=== PATIENT | female | born 1955 | race African-American/Black ===

== ENCOUNTER 2024-07-21 13:56 | Inpatient (IN) | payer MEDICARE ==
[~2024-07-21 13:56] MED LIST: Iopamidol-370 76% 500 ML MDV (1 ML CHARGE) ONE
[2024-07-21] MEDS ORDERED: Heparin 10,000 UNITS/ 10 ML VIAL ONE (14:37)
[2024-07-21] MEDS ORDERED: Tenecteplase 50 MG ONE (14:39)
[2024-07-21 14:41] LABS: #Basophils 0.04 10x3/uL (0.0-0.2); %Basophils 0.9 % (0.0-1.0); %Eosinophils 3.8 % (0.0-10.0); %Lymphocytes 34.8 % (21.0-51.0); %Monocytes 10.9 % (0.0-10.0); %Neutrophils 49.6 % (42.0-75.0); Hematocrit 35.2 % (36.0-47.0); Hemoglobin 11.3 g/dL (12.0-16.0); Mean Corpuscular HGB CONC 32.1 g/dL (32.0-36.0); Mean Corpuscular Hemoglobin 25.9 pg (27.0-31.0); Mean Corpuscular Volume 80.7 fL (78.0-98.0); Mean Platelet Volume 11.1 fL (7.4-10.4); Platelet Count 158 10x3/uL (130-400); RBC Distribution Width 14.4 % (11.5-14.5); Red Blood Cell (RBC) Count 4.36 mill/uL (4.20-5.40)
[2024-07-21] MEDS ORDERED: fentaNYL PF 100 MCG/2 ML SYRINGE ONE (14:53)
[2024-07-21] MEDS ORDERED: Iopamidol 370 76% 100 ML VIAL ONE (14:54)
[2024-07-21 15:00] LABS: Prothrombin Time 13.3 sec (12.0-14.7)
[2024-07-21 15:01] LABS: PTT 23.6 sec (22.9-36.1)
[2024-07-21] MEDS ORDERED: Rocuronium Bromide 10 MG/ML (10ML VIAL) ONE (15:07)
[2024-07-21] MEDS ORDERED: Lidocaine 1% PF 5 ML VIAL ONE (15:07)
[2024-07-21] MEDS ORDERED: PHENYLEPHRINE-NS 100 MCG/ML 10 ML SYRINGE ONE (15:07)
[2024-07-21] MEDS ORDERED: PROPOFOL 200 MG/20 ML VIAL ONE (15:07)
[2024-07-21 15:08] LABS: ALT (SGPT) 9 U/L (8-55); AST (SGOT) 17 U/L (5-34); Albumin 3.4 g/dL (3.4-4.8); Alkaline Phosphatase 73 U/L (40-110); Anion Gap 13 mmol/L (10-20); BUN (Urea Nitrogen) 29 mg/dL (9.8-20.1); Bilirubin, Total 0.9 mg/dL (0.2-1.2); Calc. Creatinine Clearance 0 mL/min (70-130); Carbon Dioxide 26 mmol/L (23-31); Chloride 101 mmol/L (98-107); Estimated GFR 62; Glucose 78 mg/dL (80-115); Potassium 2.6 mmol/L (3.5-5.1); Protein, Total 6.4 g/dL (5.8-8.1); Sodium 137 mmol/L (136-145)
[2024-07-21] MEDS ORDERED: SUGAMMADEX SODIUM 200 MG/2 ML VIAL ONE (15:12)
[2024-07-21 15:17] LABS: Troponin I Less than 0.010 ng/mL (< 0.028)
[2024-07-21] MEDS ORDERED: niCARdipine 25 MG in Sodium Chloride 0.9% 250 ML 250 ML IVPB PRN (16:10)
[2024-07-21] MEDS ORDERED: Labetalol HCl 100 MG/20 ML VIAL SLOW IVP PRN (16:10)
[2024-07-21] MEDS ORDERED: hydrALAZINE 20 MG/ML VIAL SLOW IVP PRN (16:10)
[2024-07-21 16:17] LABS: Magnesium 2.3 mg/dL (1.6-2.6); Phosphorus 2.1 mg/dL (2.3-4.7)
[2024-07-21] MEDS ORDERED: Acetaminophen 325 MG TAB PO PRN (17:16)
[2024-07-21] MEDS ORDERED: Sodium Chloride 0.9% 1,000 ML IV SCH (17:30)
[2024-07-21] MEDS: [UNRECOGNIZED DRUG - REMARK] FS SCH (19:30)
[2024-07-21 19:41] VITALS: BMI 24.7
[2024-07-21] MEDS: NS 0.9% w/ 20 MEQ KCL 1,000 ML/1,000 ML BAG IV SCH (19:43)
[2024-07-21] MEDS: Potassium Phosphate 30 MMOL in Sodium Chloride 0.9% 250 ML 250 ML IVPB SCH (19:43)
[2024-07-21] MEDS: Atorvastatin Calcium 40 MG TAB PO SCH (22:04)
[2024-07-22 04:52] LABS: #Basophils Less than 0.03 10x3/uL (0.0-0.2); #Eosinphils Less than 0.03 10x3/uL (0.0-0.7); %Basophils 0.1 % (0.0-1.0); %Eosinophils 0.1 % (0.0-10.0); %Lymphocytes 18.5 % (21.0-51.0); %Monocytes 7.3 % (0.0-10.0); %Neutrophils 73.7 % (42.0-75.0); Hemoglobin 10.4 g/dL (12.0-16.0); Mean Corpuscular HGB CONC 32.5 g/dL (32.0-36.0); Mean Corpuscular Hemoglobin 25.5 pg (27.0-31.0); Mean Corpuscular Volume 78.4 fL (78.0-98.0); Platelet Count 171 10x3/uL (130-400); RBC Distribution Width 14.4 % (11.5-14.5); Red Blood Cell (RBC) Count 4.08 mill/uL (4.20-5.40)
[2024-07-22 04:55] LABS: Anion Gap 11 mmol/L (10-20); BUN (Urea Nitrogen) 12 mg/dL (9.8-20.1); Calc. Creatinine Clearance 80 mL/min (70-130); Calcium 7.8 mg/dL (7.8-10.44); Carbon Dioxide 24 mmol/L (23-31); Cardiac Risk 2.9 (Less than 4.5); Chloride 113 mmol/L (98-107); Cholesterol 104 mg/dl (< 200 Desired); Estimated GFR 90; Glucose 101 mg/dL (80-115); HDL Cholesterol 36 mg/dL (>60 Neg Risk); LDL Cholesterol, Calculated 58 mg/dL; Phosphorus 3.6 mg/dL (2.3-4.7); Potassium 2.8 mmol/L (3.5-5.1); Sodium 145 mmol/L (136-145); Triglycerides 48 mg/dL (Less than 150)
[2024-07-22] MEDS ORDERED: Electrolyte Replacement Protocol FS PRN (08:15)
[2024-07-22] MEDS: Potassium Chloride 20 MEQ in Premix 1 BAG IVPB SCH (08:24)
[2024-07-22] MEDS ORDERED: Dextrose 5% in Water 1,000 ML IV PRN (17:45)
[2024-07-22] MEDS ORDERED: Glucagon 1 MG/ML KIT IM PRN (17:45)
[2024-07-22] MEDS: Aspirin 300 MG Suppository PR SCH (17:50)
[2024-07-22] MEDS: Dextrose 50% Abboject 50 ML SYRINGE SLOW IVP PRN (18:08)
[2024-07-22 18:44] LABS: Potassium 5.8 mmol/L (3.5-5.1)
[2024-07-22] MEDS ORDERED: Enoxaparin 40 MG (0.4 mL) SYRINGE SC SCH (21:00)
[2024-07-22] MEDS: Sodium Chloride 0.9% 1,000 ML IV SCH (21:21)
[2024-07-22] MEDS: Heparin 5,000 UNITS/ML VIAL SC SCH (21:21)
[2024-07-23] MEDS: Acetaminophen 650 MG Suppository PR PRN (04:43)
[2024-07-23 06:34] LABS: #Basophils 0.03 10x3/uL (0.0-0.2); %Basophils 0.5 % (0.0-1.0); %Eosinophils 0.8 % (0.0-10.0); %Monocytes 7.4 % (0.0-10.0); %Neutrophils 70.8 % (42.0-75.0); Hematocrit 32.9 % (36.0-47.0); Hemoglobin 10.7 g/dL (12.0-16.0); Mean Corpuscular HGB CONC 32.5 g/dL (32.0-36.0); Mean Corpuscular Hemoglobin 25.9 pg (27.0-31.0); Mean Corpuscular Volume 79.7 fL (78.0-98.0); Mean Platelet Volume 11.8 fL (7.4-10.4); Platelet Count 166 10x3/uL (130-400); RBC Distribution Width 14.7 % (11.5-14.5); Red Blood Cell (RBC) Count 4.13 mill/uL (4.20-5.40)
[2024-07-23 07:10] LABS: Anion Gap 9 mmol/L (10-20); BUN (Urea Nitrogen) 8 mg/dL (9.8-20.1); Calc. Creatinine Clearance 84 mL/min (70-130); Calcium 8.3 mg/dL (7.8-10.44); Carbon Dioxide 25 mmol/L (23-31); Chloride 112 mmol/L (98-107); Estimated GFR 95; Glucose 94 mg/dL (80-115); Potassium 2.8 mmol/L (3.5-5.1); Sodium 143 mmol/L (136-145)
[2024-07-23] MEDS: Potassium Chloride 20 MEQ in Premix 1 BAG IVPB SCH (07:47)
[2024-07-23 23:53] LABS: Potassium 3.1 mmol/L (3.5-5.1)
[2024-07-24 00:48] LABS: Glucose 80 mg/dL (80-115)
[2024-07-24] MEDS: Potassium Chloride 20 MEQ in Premix 1 BAG IVPB SCH ×2 (05:48→18:20)
[2024-07-24 17:16] LABS: Potassium 3.3 mmol/L (3.5-5.1)
[2024-07-24] MEDS: Bisacodyl 10 MG SUPP PR SCH (21:56)
[2024-07-24] MEDS: Bisacodyl 5 MG TAB PO SCH (22:31)
[2024-07-25] MEDS: Potassium Chloride 20 MEQ TAB PO SCH (10:31)
[2024-07-25] MEDS: Potassium Chloride 30 MEQ in Sodium Chloride 0.9% 1,000 ML IV SCH (11:51)
[2024-07-25] MEDS ORDERED: PROPOFOL 40 ML ONE (13:21)
[2024-07-25] MEDS ORDERED: Sodium Chloride 0.9% 100 ML ONE (14:28)
[2024-07-25] MEDS ORDERED: CEFAZOLIN 2 GM VIAL ONE (14:28)
[2024-07-25] MEDS ORDERED: Ondansetron HCl/PF 4 MG/2 ML Vial IVP PRN (14:54)
[2024-07-25] MEDS ORDERED: Promethazine HCl 25 MG/ML VIAL IM PRN (14:54)
[2024-07-25] MEDS ORDERED: Morphine Sulfate 2 MG/ML SYRINGE SLOW IVP PRN (14:54)
[2024-07-25 17:46] VITALS: BMI 23.8
[2024-07-25] MEDS: Carvedilol 3.125 MG TAB PO SCH (17:54)
[2024-07-25] MEDS: Aspirin Chewable 81 MG TAB PER TUBE SCH (17:54)
[2024-07-25] MEDS: Dextrose 50% Abboject 50 ML SYRINGE SLOW IVP SCH (17:54)
[2024-07-25] MEDS: Atorvastatin Calcium 40 MG TAB PER TUBE SCH (21:00)
[2024-07-26 06:33] LABS: #Basophils Less than 0.03 10x3/uL (0.0-0.2); %Basophils 0.2 % (0.0-1.0); %Eosinophils 0.8 % (0.0-10.0); %Lymphocytes 14.2 % (21.0-51.0); %Monocytes 7.4 % (0.0-10.0); Hematocrit 37.3 % (36.0-47.0); Hemoglobin 12.1 g/dL (12.0-16.0); Mean Corpuscular HGB CONC 32.4 g/dL (32.0-36.0); Mean Corpuscular Hemoglobin 25.9 pg (27.0-31.0); Mean Corpuscular Volume 79.7 fL (78.0-98.0); Mean Platelet Volume 11.2 fL (7.4-10.4); Platelet Count 205 10x3/uL (130-400); RBC Distribution Width 14.6 % (11.5-14.5); Red Blood Cell (RBC) Count 4.68 mill/uL (4.20-5.40)
[2024-07-26 06:46] LABS: Anion Gap 13 mmol/L (10-20); BUN (Urea Nitrogen) 15 mg/dL (9.8-20.1); Calc. Creatinine Clearance 75 mL/min (70-130); Calcium 8.7 mg/dL (7.8-10.44); Carbon Dioxide 26 mmol/L (23-31); Chloride 104 mmol/L (98-107); Estimated GFR 87; Glucose 113 mg/dL (80-115); Magnesium 1.8 mg/dL (1.6-2.6); Potassium 3.6 mmol/L (3.5-5.1); Sodium 139 mmol/L (136-145)
[2024-07-26] MEDS: Magnesium 2 GM/50 ML(in water) 2 GM in Premix 1 BAG IVPB SCH (11:12)
[2024-07-26] MEDS: Aspirin Chewable 81 MG TAB PER TUBE SCH (11:15)
[2024-07-26] MEDS: Clopidogrel Bisulfate 75 MG TAB PER TUBE SCH (11:15)
[2024-07-26] MEDS: Docusate Sodium 100 MG/10 ML UDCUP PER TUBE SCH ×2 (11:22→21:11)
[2024-07-26] MEDS ORDERED: Docusate Sodium 10 MG/1 ML Oral Suspension PER TUBE SCH (21:00)
[2024-07-26] MEDS: Acetaminophen 650 MG/20.3 ML UDCUP PO PRN (21:11)
[2024-07-27 04:40] LABS: Anion Gap 12 mmol/L (10-20); BUN (Urea Nitrogen) 16 mg/dL (9.8-20.1); Calc. Creatinine Clearance 80 mL/min (70-130); Calcium 8.7 mg/dL (7.8-10.44); Carbon Dioxide 26 mmol/L (23-31); Chloride 107 mmol/L (98-107); Estimated GFR 95; Glucose 133 mg/dL (80-115); Potassium 3.8 mmol/L (3.5-5.1); Sodium 141 mmol/L (136-145)
[2024-07-27] MEDS: Magnesium 2 GM/50 ML(in water) 2 GM in Premix 1 BAG IVPB SCH (10:08)
[2024-07-27] MEDS ORDERED: Acetaminophen 650 MG/20.3 ML UDCUP PER TUBE PRN (11:38)
[2024-07-27] MEDS: Acetaminophen 650 MG/20.3 ML UDCUP PER TUBE SCH (12:13)
[2024-07-27] MEDS: Simethicone Chewable 80 MG TAB PO SCH (12:14)
[2024-07-27] MEDS: traMADol HCl 50 MG TAB PER TUBE SCH ×2 (12:14→20:59)
[2024-07-27] MEDS: Pantoprazole 40 MG VIAL IVP SCH (12:21)
[2024-07-27 19:47] VITALS: BP 102/64; TEMP 98.2
[2024-07-28] MEDS ORDERED: Pantoprazole 40 MG VIAL IVP SCH (09:00)
== END 2024-07-27 21:41 | DRG 24 ==
LOC: ERS 13:56 → CCL 15:00 → CCU 15:39 → 2SE 07-23 21:22
PROVIDERS: ADMIT Neurological Surgery; ATTEND Internal Medicine
PROC: 3E03317 Introduction of Other Thrombolytic into Peripheral Vein, Percutaneous Approach (ICD-10-PCS; 2024-07-21)
PROC: 03CL3ZZ Extirpation of Matter from Left Internal Carotid Artery, Percutaneous Approach (ICD-10-PCS; principal; 2024-07-23)
PROC: 0DH63UZ Insertion of Feeding Device into Stomach, Percutaneous Approach (ICD-10-PCS; 2024-07-25)
DX: I63.512 Cerebral infarction due to unspecified occlusion or stenosis of left middle cerebral artery (principal); G81.91 Hemiplegia, unspecified affecting right dominant side; I47.20 Ventricular tachycardia, unspecified; I42.9 Cardiomyopathy, unspecified; R47.01 Aphasia; E78.5 Hyperlipidemia, unspecified; I10 Essential (primary) hypertension; R29.727 NIHSS score 27; E87.6 Hypokalemia; E83.39 Other disorders of phosphorus metabolism; D53.9 Nutritional anemia, unspecified; R13.12 Dysphagia, oropharyngeal phase; K59.00 Constipation, unspecified; Z79.02 Long term (current) use of antithrombotics/antiplatelets; Z79.82 Long term (current) use of aspirin; Z79.899 Other long term (current) drug therapy
CPT/HCPCS: 36415; 36416; 61645; 70450; 70496; 70498; 70551; 80048; 80053; 80061; 82947; 83735; 83880; 84100; 84132; 84484; 85025; 85610; 85730; 93005; 93306; 94760; 96374; B4087; C1769; C1887; C1894; J1644; J2470; J2704; J3101; J3480; J7030; J7050; J7999; Q9967